=== PATIENT | male | born 1975 ===

== ENCOUNTER 2018-09-12 11:06 | Inpatient (IN) | payer SELFPAY ==
[2018-09-12 11:08] VITALS: BMI 23.7
[2018-09-12 12:27] LABS: BASO % 0.7 % (0.0-2.0); EOS # 0.1 K/uL (0.0-0.7); EOS % 0.8 % (0.0-4.0); HEMOGLOBIN 13.9 g/dL (12.0-18.0); LYMPH # 1.3 K/uL (1.0-4.3); LYMPH % 18.8 % (20.0-40.0); MEAN CELL VOLUME 91.3 fL (80.0-94.0); MEAN CORPUSCULAR HEMOGLOBIN 31.4 pg (27.0-31.0); MEAN CORPUSCULAR HGB CONC 34.4 g/dL (33.0-37.0); MEAN PLATELET VOLUME 10.2 fL (7.2-11.7); MONO # 0.7 K/uL (0.0-0.8); MONO % 9.6 % (0.0-10.0); NEUT # 4.8 K/uL (1.8-7.0); NEUT % 70.1 % (50.0-75.0); NRBC % 0.1 % (0.0-2.0); RBC 4.43 Mil/uL (4.40-5.90); RED CELL DISTRIBUTION WIDTH 12.9 % (11.5-14.5); WHITE BLOOD COUNT 6.9 K/uL (4.8-10.8)
[2018-09-12 12:30] LABS: SQUAMOUS EPITHIAL < 1 /hpf (0-5); URINE BILIRUBIN NEGATIVE (NEGATIVE); URINE BLOOD NEGATIVE (NEGATIVE); URINE CLARITY Hazy (Clear); URINE COLOR Amber (YELLOW); URINE GLUCOSE (UA) NORMAL (Normal); URINE LEUKOCYTE ESTERASE NEG Leu/uL (Negative); URINE PROTEIN NEGATIVE (NEGATIVE)
[2018-09-12 12:40] LABS: ALB/GLOB RATIO 1.2 (1.0-2.1); ALBUMIN 4.4 g/dL (3.5-5.0); ALT/SGPT 53 U/L (21-72); AST/SGOT 39 U/L (17-59); BLOOD UREA NITROGEN 14 mg/dL (9-20); CALCIUM 9.6 mg/dl (8.6-10.4); GFR NON-AFRICAN AMERICAN > 60
--- NOTE | 2018-09-12 12:42 | C.PDOC ---
History Of Present Illness 42-year-old male presents to the ED requesting heroin detox. Patient reports a long history of heroin use. Patient admits to intranasal heroin use. He denies fever, chills, suicidal/homicidal ideation, or other medical problems at this time. Time Seen by Provider: 09/12/18 11:13 Chief Complaint (Nursing): Substance Abuse History Per: Patient History/Exam Limitations: no limitations Onset/Duration Of Symptoms: Hrs Current Symptoms Are (Timing): Still Present Modifying Factor(s): Other (heroin) Associated Symptoms: denies: Suicidal Thoughts, Suicidal Plan Involuntary Hold By: None Recent travel outside of the [place]: No Additional History Per: Patient Past Medical History Reviewed: Historical Data, Nursing Documentation, Vital Signs Vital Signs: Last Vital Signs Temp 97.8 F 09/12/18 11:08 Pulse 85 09/12/18 11:08 Resp 16 09/12/18 11:08 BP 138/90 09/12/18 11:08 Pulse Ox 97 09/12/18 11:08 Primary Care Provider: FAMILY PROVIDER,NO - Medical History PMH: No Chronic Diseases Surgical History: No Surg Hx Family History: States: Unknown Family Hx - Social History Hx Alcohol Use: Yes Hx Substance Use: Yes - Immunization History Hx Tetanus Toxoid Vaccination: No Hx Influenza Vaccination: No Hx Pneumococcal Vaccination: No Review Of Systems Constitutional: Negative for: Fever, Chills Psych: Positive for: Other (heroin detox ). Negative for: Suicidal ideation Physical Exam - Physical Exam Appears: Non-toxic, No Acute Distress Skin: Normal Color, Warm, Dry Head: Atraumatic, Normacephalic Oral Mucosa: Moist Neck: Supple Chest: Symmetrical, No Deformity Cardiovascular: Rhythm Regular Respiratory: No Accessory Muscle Use Extremity: Normal ROM Neurological/Psych: Oriented x3, Normal Speech, Normal Cognition Gait: Steady ED Course And Treatment - Laboratory Results Result Diagrams: 09/12/18 12:22 09/12/18 12:22 Lab Results: Total Bilirubin 0.7 mg/dL (0.2-1.3) 09/12/18 12:22 AST 39 U/L (17-59) 09/12/18 12:22 ALT 53 U/L (21-72) 09/12/18 12:22 Alkaline Phosphatase 58 U/L (38-126) 09/12/18 12:22 Total Protein 8.1 g/dL (6.3-8.3) 09/12/18 12:22 Albumin 4.4 g/dL (3.5-5.0) 09/12/18 12:22 Globulin 3.7 gm/dL (2.2-3.9) 09/12/18 12:22 Albumin/Globulin Ratio 1.2 (1.0-2.1) 09/12/18 12:22 Urine Color Ros[place] (YELLOW) 09/12/18 12:22 Urine Clarity Hazy (Clear) 09/12/18 12:22 Urine pH 5.0 (5.0-8.0) 09/12/18 12:22 Ur Specific [place] 1.028 (1.003-1.030) 09/12/18 12:22 Urine Protein Negative mg/dL (NEGATIVE) 09/12/18 12:22 Urine Glucose (UA) Normal mg/dL (Normal) 09/12/18 12:22 Urine Ketones Negative mg/dL (NEGATIVE) 09/12/18 12:22 Urine Blood Negative (NEGATIVE) 09/12/18 12:22 Urine Nitrate Negative (NEGATIVE) 09/12/18 12:22 Urine Bilirubin Negative (NEGATIVE) 09/12/18 12:22 Urine Urobilinogen 2.0 mg/dL (0.2-1.0) 09/12/18 12:22 Ur Leukocyte Esterase Neg Melina/uL (Negative) 09/12/18 12:22 Urine WBC (Auto) 1 /hpf (0-5) 09/12/18 12:22 Urine RBC (Auto) 2 /hpf (0-3) 09/12/18 12:22 Ur Squamous Epith Cells < 1 /hpf (0-5) 09/12/18 12:22 Lab Interpretation: Normal O2 Sat by Pulse Oximetry: 97 (on RA) Pulse Ox Interpretation: Normal Progress Note: Bloodwork and urinalysis ordered and reviewed. Case discussed with blow off worker, who will evaluate the patient at bedside. Patient will be screened for detox eligibility. Patient will be admitted for opiate abuse disorder under Dr. Ziegler. 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 - Scribe Statement The provider has reviewed the documentation as recorded by the Scribe (Tamy Watts) All medical record entries made by the Scribe were at my direction and personally dictated by me. I have reviewed the chart and agree that the record accurately reflects my personal performance of the history, physical exam, medical decision making, and the department course for this patient. I have also personally directed, reviewed, and agree with the discharge instructions and disposition. Decision To Admit - Pt Status Changed To: Hospital Disposition Of: Inpatient - Admit Certification Admit to Inpatient:: After my assessment, the patient will require hospitalization for at least two midnights. This is because of the severity of symptoms shown, intensity of services needed, and/or the medical risk in this patient being treated as an outpatient. - InPatient: Physician Admission Certification: I certify that this patient requires 2 or more midnights of care for the following reason:: opioid abuse - . Bed Request Type: Detox Admitting Physician: Nate Ziegler Patient Diagnosis: Drug abuse
[2018-09-12 12:49] LABS: BARBITURATES, UR NEGATIVE (NEGATIVE); BENZODIAZEPINES, UR NEGATIVE (NEGATIVE); PHENCYCLIDINE, UR NEGATIVE (NEGATIVE)
[2018-09-12 13:27] LABS: OPIATES, UR POSITIVE (NEGATIVE)
--- NOTE | 2018-09-12 13:47 | PCM.BM ---
<Brennan Barrios - Last Filed: 09/12/18 13:45> Treatment Plan Problems - Problems identified on initial assessmt denial Date Initiated: 09/12/18 Time Initiated: 13:46 Assessment reference: NA Status: Active defensive coping Date Initiated: 09/12/18 Time Initiated: 13:47 Assessment reference: NA Status: Active chronic low self esteem Date Initiated: 09/12/18 Time Initiated: 13:47 Assessment reference: NA Status: Active Treatment assets and liabiliti Patient Assests: adapts well, cooperative, ADL independent, cognitively intact Patient Liabilities: substance abuse - Milieu Protocol Maintain good personal hygiene: daily Encourage regular showers, daily Remind patient to perform daily oral care, daily Assist patient to perform ADL's Conduct patient checks and document Observation sheet: Q15 minutes Maintain personal safety: every shift Educate patient to report safety concerns to staff, every shift Monitor environment for contraband/sharps Medication safety: Monitor for expected outcome, potential side effects: every shift, Assess barriers to learning: every shift, Assess readiness for medication education: every shift <Bert Sousa - Last Filed: 09/14/18 00:46> - Diagnosis (1) Opioid use disorder, severe, dependence Status: Acute Interventions: 09/13/18 20:46 * Assess 7x/week regarding severity of withdrawal * Educate regarding risks, benefits, side effects and alternatives of medications * Use Motivational Interviewing for abstinence * Use CBT for relapse prevention * Medication management for withdrawal symptoms * Encourage medication assisted treatment * <Afshan Rubio - Last Filed: 09/14/18 09:13> Family Contact Family involvement: Famliy/SO not involved - Goals for Treatment Patient goals for treatment: Complete detox and discuss aftercare options with clinical staff. Discharge/Continuing Care - Education Needs Education Needs: Patient Medication, Patient Diagnosis/Disease Process, Patient Coping Skills, Patient Anger Management skills, Patient Placement options, Patient Community resources, Patient Other (inportance of aftercarem for stabilization.) - Discharge Discharge Criteria: No longer exhibiting s/s of withdrawal, Reduction of target symptoms Discharge to:: Home - Additional Comments 09/14/18 09:13 Staff will continue to offer support and motivate pt. to consider aftercare. - Treatment Team Participation Patient/Family/SO Statement: 09/14/18 09:13 "I'm not really interested in anything after this..." Discussed with Family/SO: No Was Patient/Family/SO present at Treatment Team Meeting: Yes
[2018-09-12] MEDS ORDERED: Magnesium Hydroxide Susp 30 ml UD PO PRN (21:54)
[2018-09-12] MEDS ORDERED: Aluminum Hydroxide/Magnesium Hydroxide Susp (30 mL) PO PRN (21:54)
--- NOTE | 2018-09-13 09:45 | PCM.PSYCH ---
Initial Psychiatric Evaluation - Initial Psychiatric Evaluation Type of Admission: Voluntary Legal Status: Capacity Chief Complaint (in patient's own words): "I need detox" History of Present Illness and Precipitating Events: The pt is seen, chart reviewed, case discussed He is a 42 yo LM, single, has 3 children (9, 12 and 14) and he is homeless and unemployed. He is here for opioid detox, using 15-20 bags by sniffing. He sometimes does suboxone too. He used to do methadone from the streets as well. He inhales cocaine, smokes MJ and cigarettes too. Xanax is around 4 to 6 mg day He describes wdw sxs from all of them Had a seziure but no ODs He has had alcoholism in the past but stopped First use of drugs at age 19 He was in detox once in the past Longest abstinence was for 4 years He is suffering from depression and anxiety. Not acutely suicidal He has hx of loss and trauma Both parents were cocaine and heroin users He has HTN but noncompliant w treatment Current Medications: Active Medications Generic Name Dose Route Start Last Admin Trade Name Freq PRN Reason Stop Dose Admin Al Hydrox/Mg Hydrox/Simethicone 30 ml 09/12/18 21:54 Maalox 30 Ml PO TID PRN Indigestion / Heartburn Clonidine HCl 0.1 mg 09/12/18 21:54 09/12/18 22:49 Catapres PO 0.1 mg Q4 PRN Administration COWS Score More or Equal to 5 Dicyclomine HCl 10 mg 09/12/18 21:54 09/12/18 22:47 Bentyl PO 10 mg Q6 PRN Administration Muscle spasm Gabapentin 300 mg 09/13/18 10:00 Neurontin PO TID BASHIR Hydroxyzine HCl 50 mg 09/12/18 21:56 09/12/18 22:48 Atarax PO 50 mg Q6H PRN Administration Anxiety Ibuprofen 600 mg 09/12/18 21:54 Motrin Tab PO Q6 PRN Pain, moderate (4-7) Loperamide HCl 2 mg 09/12/18 21:54 Imodium PO Q8 PRN Diarrhea Magnesium Hydroxide 30 ml 09/12/18 21:54 Milk Of Magnesia PO BID PRN Constipation Ondansetron HCl 4 mg 09/12/18 21:54 Zofran Tab PO Q8 PRN Nausea/Vomiting Trazodone HCl 100 mg 09/12/18 21:57 09/12/18 22:47 Desyrel PO 100 mg HS PRN Administration Sleep Past Psychiatric History - Past Psychiatric History Previous Treatment History: None Pertinent Medical Hx (Current Medical&Sleep Prob, Allergies): Allergies Allergy/AdvReac Type Severity Reaction Status Date / Time No Known Allergies Allergy Verified 09/12/18 11:07 No Known Home Med 09/12/18 Review of Systems - Psychiatric Psychiatric: Abnormal Sleep Pattern, Anhedonia, Anxiety, Depression, Difficulty Concentrating, Irritability, Mood Swings. absent: Homicidal Ideation, Suicidal Ideation Mental Status Examination - Personal Presentation Personal Presentation: Looks stated age - Affect Affect: Constricted - Motor Activity Motor Activity: Calm - Reliability in Providing Information Reliability in Providing Information: Good - Speech Speech: Organized - Mood Mood: Depressed, Anxious - Formal Thought Process Formal Thought Process: No Impairment - Cognitive Functions Orientation: Person, Place, Situation, Time Sensorium: Alert Attention/Concentration: Attentive Estimate of Intelligence: Average Judgement: Intact, as evidence by: Insight regarding need for hospitalization Memory: Recent intact, as evidence by: Ability to recall events of the day, Remote intact, as evidenced by: Abilit to recall sig. life events - Risk Risk: Diminished functioning - Strength & Assets Inventory Strength & Assets Inventory: Cooperative - Limitations Limitations: Other DSM 5 DX - DSM 5 DSM 5 Diagnosis: Opioid withdrawal Opioid use d/o - severe Sedative hypnotic use d/o with withdrawal Depressive d/ - unspecified Cocaine use d/o - severe - Recommended/Plan of Treatment Treatment Recommendations and Plan of Treatment: Taper with methadone Gabapentin for augmentation and benzos prn librium CBT and support for depression Antidep meds if no response As needed medications All risks, benefits and alternatives of the meds discussed, and the pt agreed and understood. Attend groups and activities Supportive therapy and psychoeducation [facility] for abstinence CBT for relapse prevention Encourage MAT Refer to rehab or IOP, and self-help groups Teach healthy lifestyle methods, i.e. diet, exercise, meditation Smoking cessation with [place] Nicotine patch if needed 34 min Projected ELOS: 4-5 days
--- NOTE | 2018-09-14 11:10 | PCM.PYCHPN ---
Psychiatric Progress Note - Psychiatric Progress Note Patient seen today, length of contact: 16 min Patient Chief Complaint: "I am not OK" Problems Identified/Issues Discussed: The pt is seen, chart reviewed, case is discussed with staff. The pt is compliant with medications and reports no side-effects. Symptoms are improving but needs more time to stabilize and to avoid relapse. Pt attends groups and activities. Support given, psycho-education provided. After care discussed. Medication Change: Yes (detox changes daily) Medical Record Reviewed: Yes Mental Status Examination - Cognitive Function Orientation: Person, Place, Situation, Time Memory: Intact Attention: WNL Concentration: Poor Association: WNL Fund of Knowledge: WNL - Mood Mood: Depressed, Anxious - Affect Affect: Constricted - Speech Speech: Appropriate - Formal Thought Process Formal Thought Process: No Impairment - Suicidal Ideation Suicidal Ideation: No - Homicidal Ideation Homicidal Ideation: No Goal/Treatment Plan - Goal/Treatment Plan Need for Continued Stay: Discharge may exacerbated symptoms, Severe functional impairment Progress Toward Problem(s) and Goals/Treatment Plan: Taper with methadone Gabapentin for augmentation and benzos prn librium CBT and support for depression Antidep meds if no response As needed medications All risks, benefits and alternatives of the meds discussed, and the pt agreed and understood. Attend groups and activities Supportive therapy and psychoeducation [place] for abstinence CBT for relapse prevention Encourage MAT Refer to rehab or IOP, and self-help groups Teach healthy lifestyle methods, i.e. diet, exercise, meditation Smoking cessation with [place] Nicotine patch if needed
[2018-09-15 09:47] VITALS: RESP 18
--- NOTE | 2018-09-15 11:50 | PCM.PYCHPN ---
Psychiatric Progress Note - Psychiatric Progress Note Patient seen today, length of contact: 16 min Patient Chief Complaint: I am still withdrawing. Problems Identified/Issues Discussed: Patient was seen and evaluated, chart reviewed and discussed the staff. Patient reports withdrawal symptoms including nausea, cramps and joint pains. He reports irritability and anxiety but denies any suicidal ideation or any homicidal ideation. He denies any auditory hallucinations or any paranoia. He is taking medication but denies any side effects. Supportive therapy was given Medication Change: Yes Medical Record Reviewed: Yes Mental Status Examination - Cognitive Function Orientation: Person, Place, Situation, Time Memory: Intact Attention: WNL Concentration: Poor Association: WNL Fund of Knowledge: Poor - Mood Mood: Depressed, Anxious - Affect Affect: Constricted - Speech Speech: Soft - Formal Thought Process Formal Thought Process: No Impairment - Suicidal Ideation Suicidal Ideation: No - Homicidal Ideation Homicidal Ideation: No Goal/Treatment Plan - Goal/Treatment Plan Need for Continued Stay: Remain at risks for inpatient hospitalization Progress Toward Problem(s) and Goals/Treatment Plan: Opioid withdrawal Opioid use d/o - severe Sedative hypnotic use d/o with withdrawal Depressive d/ - unspecified Cocaine use d/o - severe Taper with methadone Gabapentin for augmentation and benzos prn librium CBT and support for depression Antidep meds if no response As needed medications All risks, benefits and alternatives of the meds discussed, and the pt agreed and understood. Attend groups and activities Supportive therapy and psychoeducation [place] for abstinence CBT for relapse prevention Encourage MAT Refer to rehab or IOP, and self-help groups Teach healthy lifestyle methods, i.e. diet, exercise, meditation Smoking cessation with [place] Nicotine patch if needed
[2018-09-15 16:11] VITALS: BP 139/78; PULSE 70; TEMP 98.3; O2SAT 100
--- NOTE | 2018-09-15 16:49 | PCM.PYCHDC ---
Mental Status Examination - Mental Status Examination Orientation: Person, Place, Situation, Time Memory: Intact Mood: Neutral Affect: Constricted Speech: Soft Attention: WNL Concentration: WNL Association: WNL Fund of Knowledge: WNL Formal Thought Process: No Impairment Description of patient's judgement and insight: good, fair Psychotic Thoughts and Behaviors: denies any AVH Suicidal Ideation: No Current Homicidal Ideation?: No Discharge Summary - Discharge Note Consultations:: List each consultation separately and include: 1. Reason for request. 2. Findings. 3. Follow-up Summary of Hospital Course include:: 1. Description of specific treatment plan utilized for patients during their course of treatmen. 2. Summarize the time- course for resolution of acute symptoms and/or regressed behaviors. 3. Describe issues identified and worked on during hospitalization. 4. Describe medication utilized. 5. Describe medical problems identified and treated. 6. Reassessment of suicide risk - Final Diagnosis (DSM 5) Condition upon Discharge: STABLE Disposition: HOME/ ROUTINE Follow-up Treatment Plan: Opioid withdrawal Opioid use d/o - severe Sedative hypnotic use d/o with withdrawal Depressive d/ - unspecified Cocaine use d/o - severe Taper with methadone Gabapentin for augmentation and benzos prn librium CBT and support for depression Antidep meds if no response As needed medications All risks, benefits and alternatives of the meds discussed, and the pt agreed and understood. Attend groups and activities Supportive therapy and psychoeducation [place] for abstinence CBT for relapse prevention Encourage MAT Refer to rehab or IOP, and self-help groups Teach healthy lifestyle methods, i.e. diet, exercise, meditation Smoking cessation with [place] Nicotine patch if needed
== END 2018-09-15 16:20 | disposition home or self-care (01) | DRG 897 ==
LOC: C.ER 11:06 → C.7D 12:54
PROVIDERS: ADMIT Psychiatry & Neurology Psychiatry; ATTEND Psychiatry & Neurology Psychiatry
DX: F11.23 Opioid dependence with withdrawal (principal); F14.90 Cocaine use, unspecified, uncomplicated; F32.9 Major depressive disorder, single episode, unspecified; F41.9 Anxiety disorder, unspecified; I10 Essential (primary) hypertension; Z91.19 Patient's noncompliance with other medical treatment and regimen